=== PATIENT | male | born 1990 | race Caucasian/White ===

== ENCOUNTER 2023-10-06 16:20 | Emergency (ER) | payer BC, SELFPAY ==
[2023-10-06 16:22] VITALS: BP 138/93; PULSE 128; RESP 18; TEMP 38.8; O2SAT 96; BMI 27.8
[2023-10-06 16:30] VITALS: BP 154/97; PULSE 118; O2SAT 97
--- NOTE | 2023-10-06 16:55 | PC.NURSE ---
Called RAD for US
[2023-10-06 17:04] LABS: Coronavirus 19, PCR Not Detected (NotDetected); Influenza B, PCR Not Detected (NotDetected); Microscopic, Urine URINE MICROSCOPIC (MICROSCOPIC)
--- NOTE | 2023-10-06 17:06 | HMH.EDGENADL ---
Discharge Plan Disposition Patient Disposition: Home, Self-Care Condition: Good Prescriptions Prescriptions: New ondansetron 4 mg tablet,disintegrating 4 mg PO Q8H PRN (Reason: nausea and vomiting) 5 Days Qty: 12 0RF No Action azithromycin [Zithromax Z-Wayne] 250 mg tablet 250 mg PO QDAY 5 Days Qty: 6 0RF Referrals Follow up/Referrals: Provider,Referral, MD [Primary Care Provider] - See instructions Activity Restrictions/Add. Instructions Additional Instructions/Restrictions: You were evaluated in the emergency department today. Please chart picker your prescription for Zofran and take as needed for nausea and vomiting. Take Tylenol and ibuprofen at home as needed for pain and fever. Return to the emergency department for new or worsening symptoms. Clinical Impressions Clinical Impression: Influenza A, Abdominal pain Instructions Patient Instructions: DI for H1N1 Influenza -- Adult, DI for Fever (Symptom) -- Adult Discharge ED Provider: Lakesha Cheung General Adult HPI General Chief complaint: Fever Stated complaint: fever, abd pain, testicle pain Time Seen by Provider: 10/06/23 16:35 Mode of Arrival: Ambulatory Source of Information: Patient and Spouse Limitations: No Limitations Description of Symptoms (Recalled from ER Triage Doc. by RN): c/o fever, nausea and testicle pain, pt states that fever and nausea started Thursday after eating [place] food. [place] [facility] when his testicles/groins started to hurt and he was having gas feeling in the upper part of pubic area. Denies any color difference or shape size per pt. History of Present Illness HPI narrative: This patient is a 33-year-old male with a history of appendectomy presented to the emergency department for evaluation with concern for lower abdominal pain, fever, nausea, and testicular pain. He states that his symptoms initially started with fever on Thursday, and he felt like he had bloating and pain in his suprapubic area. He also started experiencing some pain in his testicles and groin while traveling on a plane. He denies any specific injuries, trauma, abnormal penile discharge, dysuria, vomiting, changes in bowel movements such as diarrhea constipation, or other concerns. He does note that he has had some sore throat, cough, and congestion. Related Data Previous Rx's Medication Instructions Recorded azithromycin 250 mg tablet 250 mg PO QDAY 2 tabs day 1, then 12/18/18 (Zithromax Z-Wayne) 1 tab days 2-5 5 days #6 tabs ondansetron 4 mg disintegrating 4 mg PO Q8H PRN nausea and 10/06/23 tablet vomiting 5 days #12 tabs Allergies Allergy/AdvReac Type Severity Reaction Status Date / Time No Known Allergies Allergy Verified [facility]18/18 11:45 [facility] Disclaimer: The information contained in this section may have been updated after the patient was seen, as this information can be updated by other users. Social History Smoking Status: Former smoker tobacco type: cigarettes packs per day: 1 alcohol intake: never substance use type: denies use current occupational status: employed Travel in the last 8 weeks: None household members: spouse and children housing: house ROS Obtained: Yes All systems reviewed & no additional complaints except as documented Physical Exam General General appearance: alert and in no apparent distress Head Head exam: atraumatic and normocephalic Eye Eye exam: Present normal appearance, PERRL and EOMI ENT ENT exam: Present normal exam, normal oropharynx, mucous membranes moist and normal external ear exam Neck Neck exam: Present normal inspection, full ROM and trachea midline; Absent tenderness Chest Chest inspection: Present normal inspection and symmetric chest wall rise; Absent tenderness Respiratory Respiratory exam: Present normal lung sounds bilaterally; Absent respiratory distress, wheezes, stridor or accessory mus
[2023-10-06 17:15] LABS: Basophils % 0.3 % (0.1-2.0); Eosinophils % 0.5 % (0.1-12.0); Hematocrit 43.8 % (42.0-52.0); Hemoglobin 15.1 g/dL (14.1-18.0); Lymphocytes # 1.1 K/mm3 (0.7-4.5); Lymphocytes % 16.2 % (10-50); Mean Corpuscular HGB Conc 34.6 g/dL (31.8-35.4); Mean Corpuscular Hemoglobin 28.7 pg (27.0-31.2); Mean Corpuscular Volume 82.9 fl (80-94); Mean Platelet Volume 7.7 fl (7.4-10.4); Monocytes # 0.6 K/mm3 (0.1-1.0); Monocytes % 8.8 % (1.7-9.3); Neutrophils # 5.1 K/mm3 (1.8-7.8); Neutrophils % 74.2 % (37.0-80.0); Platelet Count 177 K/mm3 (142-424); Red Blood Count 5.28 M/mm3 (4.60-6.20); Red Cell Distribution Width 13.3 % (11.5-17.5); White Blood Count 6.9 K/mm3 (4.8-10.8)
[2023-10-06 17:22] LABS: Chloride 102 mmol/L (98-107); Sodium 136 mmol/L (136-145)
--- NOTE | 2023-10-06 17:22 | PC.NURSE ---
PT TO US
[2023-10-06 17:23] LABS: Potassium 3.7 mmoL/L (3.5-5.1)
[2023-10-06 17:25] LABS: Alanine Aminotransferase 59 U/L (12-78); Albumin Level 4.9 g/dl (3.5-5.0); Albumin/Globulin Ratio 1.5 (1.1-1.8); Alkaline Phosphatase 78 U/L (38-126); Anion Gap 15.7 mEq/L (5-15); Aspartate Amino Transferase 46 U/L (17-59); Bilirubin,Total 0.5 mg/dl (0.2-1.3); Blood Urea Nitrogen 15 mg/dl (9-20); Carbon Dioxide 22 mmol/L (22.0-30.0); Creatinine Clearance Estimated 150 mL/min (50-200); Estimated Glomerular Filt Rate 97 ml/min (>60); GFR (African American) 118 ML/MIN (>60); Globulin 3.3 g/dL (1.3-3.2); Glucose 142 mg/dl (74-100); Lactic Acid 1.4 mmol/L (0.7-2.1); Total Protein,Serum 8.2 g/dl (6.3-8.2)
[2023-10-06 17:35] LABS: Influenza A, PCR Detected (NotDetected)
[2023-10-06 17:49] LABS: Appearance,Urine CLEAR (Clear); Bilirubin,Urine Negative (Negative); Blood, Urine TRACE-I (Negative); Color,Urine YELLOW (Yellow); Glucose,Urine (UA) Negative (Negative); Ketones,Urine Negative (Negative); Leukocyte Esterase,Urine Negative (Negative); Nitrate,Urine Negative (Negative); Protein,Urine Negative (Negative); Urobilinogen,Urine 0.2 EU/dl (0.2)
[2023-10-06 17:53] LABS: RBC,Urine Occasional #/hpf (0-3); Squamous Epithelial Cell,Urine Occasional #/hpf (0-5)
[2023-10-06 18:36] VITALS: BP 113/79; PULSE 84; TEMP 37.1; O2SAT 96
--- NOTE | 2023-10-06 18:43 | PC.NURSE ---
DR LEWIS AT BEDSIDE TO UPDATE PT
[2023-10-06 18:54] VITALS: BP 113/79; PULSE 84; RESP 18; TEMP 37.1; O2SAT 95
[2023-10-08 23:19] LABS: Neisseria gonorrhoeae, NAA Negative (Negative)
== END 2023-10-06 18:56 | disposition home or self-care (01) ==
PROVIDERS: Emergency Provider Emergency Medicine
DX: J10.2 Influenza due to other identified influenza virus with gastrointestinal manifestations (principal); R10.30 Lower abdominal pain, unspecified; R11.0 Nausea; N50.819 Testicular pain, unspecified; Z87.891 Personal history of nicotine dependence
CPT/HCPCS: 76870; 80053; 81001; 83605; 85025; 87040; 87491; 87591; 87636; 96361; 96374; 99285; J0131